=== PATIENT | female | born 1975 | race Caucasian/White ===

== ENCOUNTER 2018-07-28 18:22 | Emergency (ER) | payer MEDICAID ==
--- NOTE | 2018-07-28 18:41 | EDM.PDOC ---
ED HPI GENERAL MEDICAL PROBLEM - General Stated Complaint: LT EYE INJURY Time Seen by Provider: 07/28/18 18:30 Source of Information: Reports: Patient History Limitations: Reports: No Limitations - History of Present Illness INITIAL COMMENTS - FREE TEXT/NARRATIVE: Humera complains of severe left eye pain for 10 days. She is been seen by optometry on the and was placed on Ofloxacin and prednisone drops for Uveitis. Her pain & vision have progressively got worse; associated with photophobia. Initial injury was a corneal abrasion apparently sustained at work, by a tiny rock that entered her eye. She typically wears contact lenses. She denies fever chills but complains of a headache Onset: Gradual L eye Pain Score (Numeric/FACES): 8 - Related Data Allergies Allergy/AdvReac Type Severity Reaction Status Date / Time clindamycin Allergy Rash Verified 07/28/18 18:33 Home Meds: Home Meds Levothyroxine 125 mcg PO ACBREAKFAST 07/28/18 [History] Ofloxacin 3 drop EYELF DAILY 07/28/18 [History] prednisoLONE acetate [Pred Forte 1% Ophth Susp] 3 drop EYELF DAILY 07/28/18 [ History] ED ROS GENERAL - Review of Systems Review Of Systems: ROS reveals no pertinent complaints other than HPI. ED EXAM GENERAL W FULL EYE - Physical Exam Exam: See Below Exam Limited By: Other (Photosensitivity) General Appearance: Alert, WD/WN, No Apparent Distress Eye Exam: Left Eye: Conjunctival Injection, Vision Changes With Correction: No Eyelids: Bilateral: Normal Appearance Conjunctiva & Sclera: Left: Discharge, Injected Extraocular Movements: Bilateral: Intact Pupils: Normal Accommodation Pupillary Reaction: Bilateral: Brisk Posterior Chamber: Bilateral: Unable to Examine Course - Vital Signs Last Recorded V/S: Last Vital Signs Temp 98.2 F 07/28/18 18:25 Pulse 103 H 07/28/18 18:25 Resp 18 07/28/18 18:25 BP 111/90 07/28/18 18:25 Pulse Ox 100 07/28/18 18:25 Departure - Departure Time of Disposition: 18:59 Disposition: DC/Tfer to [facility] 02 Clinical Impression: Iritis, Eye pain - Discharge Information Referrals: Barbra Ramos, [employer] [Primary Care Provider] - - Problem List & Annotations (1) Eye pain SNOMED Code(s): 22411818 Code(s): H57.10 - OCULAR PAIN, UNSPECIFIED EYE Status: Acute Current Visit: No Qualifiers: Laterality: left Qualified Code(s): H57.12 - Ocular pain, left eye - Problem List Review Problem List Initiated/Reviewed/Updated: Yes - Assessment/Plan Plan: I consulted with ophthalmology, at [facility],and it was agreed upon that she should present to the ER in [place],for further examination and consultations as appropriate.
== END 2018-07-28 19:12 ==
LOC: FB.ED 18:22
DX: H20.9 Unspecified iridocyclitis (principal); Z88.1 Allergy status to other antibiotic agents; Z79.899 Other long term (current) drug therapy
CPT/HCPCS: 99283

== ENCOUNTER 2019-02-24 17:59 | Emergency (ER) | payer OTHER ==
[2019-02-24] MEDS ORDERED: Ketorolac 60 MG/2 ML SDV IM ONE (18:20)
--- NOTE | 2019-02-24 18:25 | EDM.PDOC ---
ED HPI GENERAL MEDICAL PROBLEM - General Chief Complaint: Burn Stated Complaint: L FOOT BURN Time Seen by Provider: 02/24/19 18:15 Source of Information: Reports: Patient, Family History Limitations: Reports: No Limitations - History of Present Illness INITIAL COMMENTS - FREE TEXT/NARRATIVE: c/o burn L foot cooking, water or grease splashed onto her L foot painful works at [employer] at midnight tonight, here with sig other and child - Related Data Allergies Allergy/AdvReac Type Severity Reaction Status Date / Time clindamycin Allergy Rash Verified 02/24/19 18:23 Home Meds: Home Meds Levothyroxine 125 mcg PO ACBREAKFAST 07/28/18 [History] Silver Sulfadiazine [Silvadene 1% Cream 20 GM] 1 applic TOP DAILY #1 tube [Rx] Past Medical History 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: Endocrine/Metabolic History: Reports: Hypothyroidism, Other (See Below) Other Endocrine/Metabolic History: hx Graves disease - Infectious Disease History Infectious Disease History: Reports: Chicken Pox Social & Family History - Family History Family Medical History: Noncontributory - Caffeine Use Caffeine Use: Reports: Coffee ED ROS GENERAL - Review of Systems Review Of Systems: See Below Constitutional: Reports: No Symptoms HEENT: Reports: No Symptoms Respiratory: Reports: No Symptoms Cardiovascular: Reports: No Symptoms Endocrine: Reports: No Symptoms GI/Abdominal: Reports: No Symptoms : Reports: No Symptoms Musculoskeletal: Reports: No Symptoms Skin: Reports: Wound Neurological: Reports: No Symptoms Psychiatric: Reports: No Symptoms Hematologic/Lymphatic: Reports: No Symptoms Immunologic: Reports: No Symptoms ED EXAM, SKIN/RASH Exam: See Below Exam Limited By: No Limitations General Appearance: Alert, WD/WN, Mild Distress Skin: Other (erythema of the dorsum of the first 4 toes with blisters of 5-8 mm over the doral phalange of the 1st 3, blisters intact, no breaks in skin) Departure - Departure Time of Disposition: 18:22 Disposition: Home, Self-Care 01 Condition: Good Clinical Impression: Burn of foot, first degree Qualifiers: Encounter type: initial encounter Laterality: left Qualified Code(s): T25.122A - Burn of first degree of left foot, initial encounter Burn of foot, second degree Qualifiers: Encounter type: initial encounter Laterality: left Qualified Code(s): T25.222A - Burn of second degree of left foot, initial encounter - Discharge Information *PRESCRIPTION DRUG MONITORING PROGRAM REVIEWED*: Not Applicable *COPY OF PRESCRIPTION DRUG MONITORING REPORT IN PATIENT MAMIE: Not Applicable Prescriptions: Silver Sulfadiazine [Silvadene 1% Cream 20 GM] 1 applic TOP DAILY #1 tube Instructions: Second-Degree Burn, Adult, Burn Care, Adult Referrals: Barbra Ramos AMBULATORY SERVICES REPRESENTATIVE [Primary Care Provider] - Forms: ED Department Discharge, ED Return to Work/School Form Additional Instructions: For pain, take ibuprofen 200 mg 3 tabs and acetaminophen 500 mg 2 tabs 4 times a day for 2 days. For pain, take tramadol 50 mg 2 tabs every 6 hours as needed. For pain, soak in cool water for 10-15 minutes every hour as needed. Keep covered with a dressing for the next week. If the blisters rupture, use a thin layer of the 1% silver sulfadiazine cream daily for 1 week. See your doctor in 3 days. No work today. See a doctor the same day for any increase in redness, swelling, pain, warmth, fever or drainage.
== END 2019-02-24 18:55 | disposition home or self-care (01) ==
LOC: FB.ED 17:59
DX: T25.222A Burn of second degree of left foot, initial encounter (principal); T25.132A Burn of first degree of left toe(s) (nail), initial encounter; X10.2XXA Contact with fats and cooking oils, initial encounter
CPT/HCPCS: 96372; 99283; J1885